=== PATIENT | female | born 1975 | race Caucasian/White ===

== ENCOUNTER → 2016-12-15 | Outpatient (CLI) | payer BC ==
--- NOTE | 2016-12-19 09:18 | MM ---
Reason for exam: screening (asymptomatic). Last mammogram was performed 1 year and 11 months ago. History: Patient is postmenopausal and has history of ovarian cancer at age 39. Family history of breast cancer in maternal aunt at age 60 and breast cancer in paternal aunt at age 50. Took hormonal contraceptives for 3 years. Physical Findings: A clinical breast exam by your physician is recommended on an annual basis and results should be correlated with mammographic findings. MG 3D Screening Mammo W/Cad Bilateral CC and MLO view(s) were taken. Prior study comparison: February 03, 2015, bilateral US breast workup limited TERRIE. January 16, 2015, bilateral MG 3d screening mammo w/cad. November 05, 2010, bilateral digital screening mammo w/CAD. The breast tissue is almost entirely fat. Tiny 2mm nodular asymmetry only seen on the CC view left breast seems to persist on the 3D images. No correlation on the MLO images. 6 month follow up recommended. ASSESSMENT: Probably benign, BI-RAD 3 RECOMMENDATION: Follow-up diagnostic mammogram of the left breast in 6 months.
== END | disposition home or self-care (01) ==
LOC: RADMAMWWP 13:31
PROVIDERS: ATTEND Internal Medicine Hematology & Oncology
DX: Z12.31 Encounter for screening mammogram for malignant neoplasm of breast (principal)
CPT/HCPCS: 77063; G0202

== ENCOUNTER → 2017-11-28 | Outpatient (CLI) | payer BC ==
--- NOTE | 2017-11-28 13:51 | US ---
EXAMINATION TYPE: US abdomen comp/pelvis limited DATE OF EXAM: 11/28/2017 COMPARISON: Prior ultrasound 09/09/2014, CT 201509/16/2014 CLINICAL HISTORY: R31.9 Hematuria. EXAM MEASUREMENTS: Liver Length: 17.1 cm Gallbladder Wall: 0.3 cm CBD: 0.5 cm Spleen: 9.3 cm Right Kidney: 11.5 x 3.9 x 5.3 cm Left Kidney: 11.5 x 5.6 x 5.2 cm Pancreas: wnl Liver: left lobe mass seen previously by ultrasound not visualized in today's ultrasound, right lobe mass measures 7.3 x 6.2 x 5.0cm., Similar to most recent CT, prior ultrasound. Liver shows a coarse echotexture possibly hepatocellular disease. Gallbladder: there are two non mobile echogenic foci believed to be polyps measuring 0.4 and 0.3cm CBD: wnl Spleen: wnl Right Kidney: No hydronephrosis or masses seen Left Kidney: No hydronephrosis or masses seen and cortical medullary differentiation is maintained b ilaterally. Upper IVC: wnl Abd Aorta: wnl Bladder: not fully distended There is no ascites. IMPRESSION: Right lobe liver mass shows a similar appearance. Additional liver lesion is not seen. Ga llbladder polyps. Exam is somewhat limited, bladder not distended.
== END | disposition home or self-care (01) ==
LOC: RADUSWWP 06:56
PROVIDERS: ATTEND Internal Medicine
DX: K82.4 Cholesterolosis of gallbladder (principal); K76.89 Other specified diseases of liver
CPT/HCPCS: 76700; 76857

== ENCOUNTER → 2017-12-18 | Outpatient (CLI) | payer BC ==
--- NOTE | 2017-12-18 09:06 | MM ---
Reason for exam: follow-up at short interval from prior study. Last mammogram was performed 6 months ago. History: Patient is postmenopausal and has history of ovarian cancer at age 39. Family history of breast cancer in maternal aunt at age 60 and breast cancer in paternal aunt at age 50. Took hormonal contraceptives for 3 years. Physical Findings: Nurse did not find any significant physical abnormalities on exam. MG 3D Diag Mammo W/Cad TERRIE Bilateral CC and MLO view(s) were taken. Prior study comparison: June 16, 2017, left breast MG 3d diag mammo w/cad LT. December 15, 2016, bilateral MG 3d screening mammo w/cad. There are scattered fibroglandular densities. There is chronic nodularity in the left breast. No significant new findings when compared with previous films. These results were verbally communicated with the patient and result sheet given to the patient on 12/18/17. ASSESSMENT: Negative, BI-RAD 1 RECOMMENDATION: Routine screening mammogram of both breasts in 1 year.
== END | disposition home or self-care (01) ==
LOC: RADMAMWWP 07:59
PROVIDERS: ATTEND Internal Medicine Hematology & Oncology
DX: R92.8 Other abnormal and inconclusive findings on diagnostic imaging of breast (principal)
CPT/HCPCS: 77062; 77066

== ENCOUNTER → 2019-03-22 | Outpatient (CLI) | payer BC ==
--- NOTE | 2019-03-22 12:35 | XR ---
EXAMINATION TYPE: XR Hip Complete RT DATE OF EXAM: 03/22/2019 COMPARISON: None HISTORY: Patient pain increasing TECHNIQUE: 2 view right hip FINDINGS: Femoral head articulates with the acetabulum. No acute fracture or dislocation is evident. Joint spaces preserved. IMPRESSION: 1. Normal 2 view right hip
== END | disposition home or self-care (01) ==
LOC: RADXRYALE 10:35
PROVIDERS: ATTEND Internal Medicine
DX: M25.551 Pain in right hip (principal)
CPT/HCPCS: 73502

== ENCOUNTER → 2019-12-10 | Outpatient (CLI) | payer BC ==
--- NOTE | 2019-12-11 11:58 | MM ---
Reason for exam: screening (asymptomatic). Last mammogram was performed 2 years ago. History: Patient is postmenopausal and has history of ovarian cancer at age 39. Family history of breast cancer in maternal aunt at age 60 and breast cancer in paternal aunt at age 50. Took hormonal contraceptives for 3 years. Physical Findings: A clinical breast exam by your physician is recommended on an annual basis and results should be correlated with mammographic findings. MG 3D Screening Mammo W/Cad Bilateral CC and MLO view(s) were taken. Prior study comparison: December 18, 2017, bilateral MG 3d diag mammo w/cad [facility]E. June 16, 2017, left breast MG 3d diag mammo w/cad LT. The breast tissue is almost entirely fat. No significant changes when compared with prior studies. ASSESSMENT: Benign, BI-RAD 2 RECOMMENDATION: Routine screening mammogram of both breasts in 1 year.
== END | disposition home or self-care (01) ==
LOC: RADMAMWWP 14:46
PROVIDERS: ATTEND Internal Medicine Hematology & Oncology
DX: Z12.31 Encounter for screening mammogram for malignant neoplasm of breast (principal); Z80.3 Family history of malignant neoplasm of breast
CPT/HCPCS: 77063; 77067

== ENCOUNTER → 2020-08-12 | Outpatient (CLI) | payer BC ==
--- NOTE | 2020-08-12 21:49 | CT ---
EXAMINATION TYPE: CT ChestAbdPelvis w con DATE OF EXAM: 08/12/2020 INDICATION: Ovarian cancer follow up. Observe for mets. COMPARISON: 11/16/2015 CT DLP: 1998.3 mGycm CONTRAST: Performed without Oral Contrast and with IV Contrast, patient injected with 100 mL of Isovue M300. TECHNIQUE: Axial images at 5 mm thick sections. Reconstructed images in the coronal plane. Delayed images through the kidneys. FINDINGS: CT CHEST: Portion of the thyroid visualized is normal. There are faint scattered filtrates throughout the bilateral lung lorenz. These are nonspecific. Infe ctious etiology could be considered. Metastatic disease is not excluded. Follow-up is recommended. No enlarged mediastinal or hilar adenopathy is evident. There are scattered small lymph nodes within the mediastinum The ascending aorta diameter at the level of the main pulmonary artery is 3.5 cm. The main pulmonary artery diameter at the bifurcation is 3.[address] ABDOMEN: Liver: There is a 6.4 cm irregular hypodensity within the liver. This appears to mostly fill on postc ontrast imaging. This was present previously. Interval increase in size is not evident. Findings can be suggestive for a hemangioma Spleen: Splenic splenules are present. Spleen appears unremarkable. Pancreas: Normal Adrenal glands: The adrenal glands are normal. Gallbladder: Normal Kidneys: No masses are evident. No hydronephrosis is present. No cysts are present. Delayed images were obtained through the kidneys, which remain unremarkable. Aorta: Normal Inferior vena cava: Normal. CT PELVIS: Loops of bowel within the abdomen and pelvis are normal. Study is performed without oral contrast limiting pelvic evaluation Appendix: Normal as visualized. Urinary bladder: Normal. Genitourinary structures: Uterus and ovaries are not identified. No omental caking is evident. No amanda picious ascites is evident Osseous structures: No suspicious lytic or sclerotic lesions. IMPRESSIONS: 1. Scattered infiltrates in the lungs. Infectious etiology and metastatic disease should be considere d. Short-term follow-up of the chest is recommended stable lesion within the right lobe liver suggest jimmy for old not completely diagnostic of, a hemangioma.
== END | disposition home or self-care (01) ==
LOC: RADPROMAIN 14:23
PROVIDERS: ATTEND Internal Medicine Hematology & Oncology
DX: C56.9 Malignant neoplasm of unspecified ovary (principal); R91.8 Other nonspecific abnormal finding of lung field
CPT/HCPCS: 71260; 74177; J1642; Q9967

== ENCOUNTER → 2021-03-02 | Outpatient (CLI) | payer BC ==
--- NOTE | 2021-03-04 14:47 | MM ---
Reason for exam: screening (asymptomatic). Last mammogram was performed 1 year and 3 months ago. History: Patient is postmenopausal and has history of ovarian cancer at age 39. Family history of breast cancer in maternal aunt at age 60 and breast cancer in paternal aunt at age 50. Took hormonal contraceptives for 3 years. Physical Findings: A clinical breast exam by your physician is recommended on an annual basis and results should be correlated with mammographic findings. MG 3D Screening Mammo W/Cad Bilateral CC and MLO view(s) were taken. Prior study comparison: December 10, 2019, bilateral MG 3d screening mammo w/cad. December 18, 2017, bilateral MG 3d diag mammo w/cad [facility]E. There are scattered fibroglandular densities. No significant changes when compared with prior studies. ASSESSMENT: Benign, BI-RAD 2 RECOMMENDATION: Routine screening mammogram of both breasts in 1 year.
== END | disposition home or self-care (01) ==
LOC: RADMAMWWP 11:25
PROVIDERS: ATTEND Internal Medicine Hematology & Oncology
DX: Z12.31 Encounter for screening mammogram for malignant neoplasm of breast (principal); Z80.3 Family history of malignant neoplasm of breast; Z78.0 Asymptomatic menopausal state; Z85.43 Personal history of malignant neoplasm of ovary
CPT/HCPCS: 77063; 77067

== ENCOUNTER → 2022-04-06 | Outpatient (CLI) | payer BC ==
--- NOTE | 2022-04-06 14:41 | XR ---
EXAMINATION TYPE: XR Hip Complete RT DATE OF EXAM: 04/06/2022 COMPARISON: NONE HISTORY: Pain TECHNIQUE: 2 views submitted FINDINGS: There is no evidence of erosive change or acute fracture. Joint space preserved. Surgical clips in the pelvis. Calcification in the pelvis likely vascular. Vis ualized SI joints normal. There is mild hypertrophy of the acetabulum laterally. IMPRESSION: 1. Joint space is preserved. Mild degree of femoral acetabular impingement in the differential diagno sis consider follow-up MRI.
--- NOTE | 2022-04-06 14:42 | XR ---
EXAM TYPE: LUMBAR SPINE X RAY SERIES COMPARISON: NONE HISTORY: Pain TECHNIQUE: 4 views are submitted. FINDINGS: Alignment is anatomic. The pedicles are intact. The transverse processes are intact. There is face t arthropathy involving the lower lumbar spine with moderate degenerative disc disease L4-5. No defin ite spondylolysis or spondylolisthesis. Mild degenerative disc disease at remaining levels. IMPRESSION: 1. Mild to moderate degenerative disc disease most marked at L4-L5 with facet arthropathy. Suspect fo raminal encroachment L4-5 and L5-S1. Recommend MRI.
== END | disposition home or self-care (01) ==
LOC: RADXRYALE 13:37
PROVIDERS: ATTEND Internal Medicine
DX: M51.36 Other intervertebral disc degeneration, lumbar region (principal); M24.851 Other specific joint derangements of right hip, not elsewhere classified; M54.31 Sciatica, right side
CPT/HCPCS: 72110; 73502

== ENCOUNTER → 2022-06-10 | Outpatient (CLI) | payer BC ==
--- NOTE | 2022-06-10 10:01 | MR ---
EXAMINATION TYPE: MR abdomen wo/w con DATE OF EXAM: 06/10/2022 COMPARISON: CT April 25, 2022 HISTORY: Abnormal CT. Fatty change of liver. History of ovarian cancer. CONTRAST: Standard multiplanar, multisequence MRI departmental protocol images were obtained without contrast a nd with 11 mL intravenous Gadavist gadolinium contrast. Imaging performed of the abdomen focusing on the liver. FINDINGS: Liver: Liver remains normal in size. Diffuse signal dropout is present correlates with marked fatty i nfiltration as suspected on CT. Wedge-shaped area of slightly less prominent fatty infiltration in th e anterolateral right lobe correlates with CT area of focal fatty sparing. In the posterior right hep atic lobe there is mass of T1 hypointensity and T2 slight hyperintensity measuring 5.8 x 4.8 cm that shows peripheral nodular enhancement and progressive centripetal filling on dynamic images consistent with giant hemangioma. There is a new 1.0 cm homogeneous enhancing lesion in the hepatic dome that s hows some washout on delayed images felt to reflect flash filling hemangioma image 581 series 901. Si milar lesions in the right hepatic lobe image 41 series 901 and a few similar lesions in the left hep atic lobe are identified. No ductal dilatation. Gallbladder is within normal limits. No ascites. Port al vein is patent and not dilated. There are hepatic veins draining into the IVC. Other: Lung bases are grossly clear. Incidental tiny splenule. Pancreas and both adrenal glands appea r within normal limits. No renal mass or hydronephrosis. No suspicious bowel dilatation. No intra-abd ominal ascites. Osseous structures are intact IMPRESSION: Marked diffuse fatty infiltration of liver redemonstrated. Giant hemangioma and smaller f lash filling hemangiomas noted. No biliary dilatation. No suspicious enhancement to suggest metastati c disease.
== END | disposition home or self-care (01) ==
LOC: RADMRIMAIN 08:19
PROVIDERS: ATTEND Internal Medicine Hematology & Oncology
DX: C56.2 Malignant neoplasm of left ovary (principal); K76.0 Fatty (change of) liver, not elsewhere classified
CPT/HCPCS: 74183; J1642; A9585

== ENCOUNTER 2022-11-05 00:12 | Emergency (ER) | payer BC ==
[2022-11-05 00:27] VITALS: TEMP 98.2
--- NOTE | 2022-11-05 00:29 | ED ---
Fall HPI - General Chief Complaint: Fall Stated Complaint: FALL Time Seen by Provider: 11/05/22 00:17 Source: patient, EMS, RN notes reviewed, old records reviewed Mode of arrival: EMS Limitations: no limitations - History of Present Illness Initial Comments: This is a 47-year-old female to the emergency department today for evaluation presents today after fall. Patient of fall off a chair that broke a she was sitting on today. Patient is complaining of back pain and did hit her head. No loss of consciousness no blood thinners. 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 Fall Witnessed: yes, by bystander Place Fall Occurred: other (The abdominal) Loss of Consciousness: none Prolonged Down Time?: no Symptoms Prior to Fall: none Location: head Severity: moderate Severity scale (1-10): 4 Quality: burning Context: tripped/slipped Associated Symptoms: denies - Related Data Previous Rx's Medication Instructions Recorded Acetaminophen-Codeine 300-30mg 2 tab PO Q6H PRN #30 tablet 10/10/14 [Tylenol #3] Allergies Allergy/AdvReac Type Severity Reaction Status Date / Time latex Allergy Rash/Hives Verified 10/07/14 08:54 Review of Systems ROS Statement: Those systems with pertinent positive or pertinent negative responses have been documented in the HPI. ROS Other: All systems not noted in ROS Statement are negative. Past Medical History Past Medical History: Cancer Additional Past Medical History / Comment(s): ovarian Ca, chemo completed, in remission History of Any Multi-Drug Resistant Organisms: None Reported Past Surgical History: Section, Hysterectomy Past Anesthesia/Blood Transfusion Reactions: Motion Sickness Past Psychological History: No Psychological Hx Reported Smoking Status: Never smoker Past Alcohol Use History: None Reported Past Drug Use History: None Reported - Past Family History Father Family Medical History: No Reported History Mother Family Medical History: No Reported History General Exam Limitations: altered mental status General appearance: alert, in no apparent distress Head exam: Present: atraumatic, normocephalic, normal inspection Eye exam: Present: normal appearance, PERRL, EOMI. Absent: scleral icterus, conjunctival injection, periorbital swelling ENT exam: Present: normal exam, mucous membranes moist Neck exam: Present: normal inspection. Absent: tenderness, meningismus, lymphadenopathy Respiratory exam: Present: normal lung sounds bilaterally. Absent: respiratory distress, wheezes, rales, rhonchi, stridor Cardiovascular Exam: Present: regular rate, normal rhythm, normal heart sounds. Absent: systolic murmur, diastolic murmur, rubs, gallop, clicks GI/Abdominal exam: Present: soft, normal bowel sounds. Absent: distended, tenderness, guarding, rebound, rigid Extremities exam: Present: normal inspection, full ROM, normal capillary refill. Absent: tenderness, pedal edema, joint swelling, calf tenderness Back exam: Present: normal inspection Neurological exam: Present: alert, oriented X3, CN II-XII intact Psychiatric exam: Present: normal affect, normal mood Skin exam: Present: warm, dry, intact, normal color. Absent: rash Course Vital Signs 11/05/22 11/05/22 00:17 05:11 Temperature 98.2 F Pulse Rate 98 66 Respiratory 12 18 Rate Blood Pressure 131/85 114/67 O2 Sat by Pulse 96 98 Oximetry - Reevaluation(s) Reevaluation #1: 11/05/22 02:10 Medical record is reviewed Reevaluation #2: 11/05/22 02:10 Patient is not requiring any pain medication Reevaluation #3: 11/05/22 02:10 Patient informed results questions answered Reevaluation #4: 11/05/22 02:10 Was pt. sent in by a medical professional or institution (, PA, DISTRICT SUPERVISOR, urgent care, hospital, or usp...) When possible be specific @ -no Did you speak to anyone other than the patient for history (EMS, parent, family, police, friend...)? What history was obtained from this source @ -no Did you review nursing and triage notes (agree or disagree)? Why? @ -agree Are old charts reviewed (outside hosp., previous admission, EMS record, old EKG, old radiological studies, urgent care reports/EKG's, usp records)? Report findings @ -yes Differential Diagnosis (chest pain, altered mental status, abdominal pain women, abdominal pain men, vaginal bleeding, weakness, fever, dyspnea, syncope, headache, dizziness, GI bleed, back pain, seizure, CVA, palpatations, mental health, musculoskeletal)? @ -prior EKG interpreted by me (3pts min.). @ -no X-rays interpreted by me (1pt min.). @ -yes CT interpreted by me (1pt min.). @ -yes U/S interpreted by me (1pt. min.). @ -no What testing was considered but not performed or refused? (CT, X-rays, U/S, labs)? Why? @ -none What meds were considered but not given or refused? Why? @ -none Did you discuss the management of the patient with other professionals (professionals i.e. , PA, DISTRICT SUPERVISOR, lab, RT, psych nurse, executive secretary social welfare, military lawyer, teacher, nuclear officer, casework supervisor)? Give summary @ -no Was smoking cessation discussed for >3mins.? @ -no Was critical care preformed (if so, how long)? @ -no Were there social determinants of health that impacted care today? How? (Homelessness, low income, unemployed, alcoholism, drug addiction, transportation, low edu. Level, literacy, decrease access to med. care, group home, rehab)? @ -none Was there de-escalation of care discussed even if they declined (Discuss DNR or withdrawal of care, Hospice)? DNR status @ -no What co-morbidities impacted this encounter? (DM, HTN, Smoking, COPD, CAD, Cancer, CVA, ARF, Chemo, Hep., AIDS, mental health diagnosis, sleep apnea, morbid obesity)? @ -none Was patient admitted / discharged? Hospital course, mention meds given and route, prescriptions, significant lab abnormalities, going to OR and other pertinent info. @ - 47 female after fall fall off chair, patient did hit her head with no significant obvious head injury the patient was very emotional and mildly altered on arrival. The symptoms are resolved and patient can be discharged home Discharge Undiagnosed new problem with uncertain prognosis? @ -no Drug Therapy requiring intensive monitoring for toxicity (Heparin, Nitro, Insulin, Cardizem)? @ -no Were any procedures done? @ -no Diagnosis/symptom? @ -Fall, head injury Acute, or Chronic, or Acute on Chronic? @ -Acute Uncomplicated (without systemic symptoms) or Complicated (systemic symptoms)? @ -Complicated Side effects of treatment? @ -no Exacerbation, Progression, or Severe Exacerbation? @ -exacerbation Poses a threat to life or bodily function? How? (Chest pain, USA, CA, pneumonia, PE, COPD, DKA, ARF, appy, cholecystitis, CVA, Diverticulitis, Homicidal, Suicidal, threat to staff... and all critical care pts) @ -no Medical Decision Making - Medical Decision Making 47 female after fall fall off chair, patient did hit her head with no significant obvious head injury the patient was very emotional and mildly altered on arrival. The symptoms are resolved and patient can be discharged home - Radiology Data Radiology results: report reviewed (CT brain C-spine chest and pelvis x-ray are negative for traumatic injury), image reviewed Disposition Clinical Impression: Fall, Contusion of head, Back pain, Buttock pain Disposition: HOME SELF-CARE Condition: Good Instructions (If sedation given, give patient instructions): Fall Prevention (ED) Is patient prescribed a controlled substance at d/c from ED?: No Referrals: Yue Mejia MD [Primary Care Provider] - 1-2 days Time of Disposition: 03:00
--- NOTE | 2022-11-05 02:38 | CT ---
EXAM: CT Head Without Intravenous Contrast CLINICAL HISTORY: ITS.REASON CT Reason: fall TECHNIQUE: Axial computed tomography images of the head/brain without intravenous contrast. CTDI is 45.2 mGy and DLP is 1022 mGy-cm. This CT exam was performed using one or more of the following dose reduction techniques: automated exposure control, adjustment of the mA and/or kV according to patient size, and/or use of iterative reconstruction technique. COMPARISON: No relevant prior studies available. FINDINGS: Brain: No hemorrhage or mass effect. Ventricles: No hydrocephalus. Bones/joints: Unremarkable. Soft tissues: Unremarkable. Sinuses: No air fluid level. Mastoid air cells: Clear. IMPRESSION: No acute hemorrhage, hydrocephalus, or mass effect. EXAM: CT Cervical Spine Without Intravenous Contrast CLINICAL HISTORY: ITS.REASON CT Reason: fall TECHNIQUE: Axial computed tomography images of the cervical spine without intravenous contrast. CTDI is 27.3 mGy and DLP is 680.1 mGy-cm. This CT exam was performed using one or more of the following dose reduction techniques: automated exposure control, adjustment of the mA and/or kV according to patient size, and/or use of iterative reconstruction technique. COMPARISON: No relevant prior studies available. FINDINGS: Vertebrae: No acute fracture. Discs/spinal canal/neural foramina: degenerative changes. Soft tissues: No prevertebral swelling. IMPRESSION: No acute fracture or subluxation.
--- NOTE | 2022-11-05 03:37 | XR ---
EXAM: XR Pelvis, 1 or 2 Views CLINICAL HISTORY: ITS.REASON XR Reason: fall TECHNIQUE: Frontal view of the pelvis. COMPARISON: No relevant prior studies available. FINDINGS: Bones/joints: No acute fracture. No dislocation. Soft tissues: Unremarkable. IMPRESSION: No acute findings.
--- NOTE | 2022-11-05 03:37 | XR ---
EXAM: XR Chest, 1 View CLINICAL HISTORY: ITS.REASON XR Reason: fall TECHNIQUE: Frontal view of the chest. COMPARISON: No relevant prior studies available. FINDINGS: Lungs: No consolidation or mass. Pleural space: No acute findings Heart: Mild cardiomegaly. Bones/joints: No acute findings. IMPRESSION: No acute cardiopulmonary process.
[2022-11-05 05:14] VITALS: BP 114/67; PULSE 66; RESP 18
== END 2022-11-05 05:46 | disposition home or self-care (01) ==
LOC: EC 00:12
DX: S00.93XA Contusion of unspecified part of head, initial encounter (principal); Z91.040 Latex allergy status; W07.XXXA Fall from chair, initial encounter
CPT/HCPCS: 70450; 71045; 72125; 72170; 99284

== ENCOUNTER 2023-01-13 13:27 | Day surgery (SDC) | payer BC ==
[2023-01-13 14:04] VITALS: TEMP 97.7
[2023-01-13] MEDS ORDERED: LACTATED RINGERS 1,000 ML IV ONE (14:05)
[2023-01-13] MEDS ORDERED: PROPOFOL 10 MG/ML 20 ML VIAL IV ONE (14:49)
--- NOTE | 2023-01-13 15:05 | P.PCN ---
Date of Procedure: 01/13/23 Procedure(s) Performed: BRIEF HISTORY: Patient is a 47-year-old pleasant 8 female scheduled for an elective colonoscopy as a part of evaluation of intermittent rectal bleeding for the last 6 months duration PROCEDURE PERFORMED: Colonoscopy. PREOPERATIVE DIAGNOSIS: Intermittent rectal bleeding. IV sedation per Anesthesia. PROCEDURE: After informed consent was obtained, the patient, was brought into the endoscopy unit. IV sedation was administered by Anesthesia under continuous monitoring. Digital rectal examination was normal. Initially the Olympus CF-160 flexible video colonoscope was then inserted in the rectum, gradually advanced into the cecum without any difficulty. Careful examination was performed as the scope was gradually being withdrawn. Ileocecal valve and the appendiceal orifice were visualized and appeared normal. Prep was excellent. Mucosa of the cecum, ascending colon, transverse colon, descending colon, sigmoid colon, and rectum appeared normal. Retroflexion was performed in the rectum and small internal hemorrhoids were seen. The patient tolerated the procedure well. IMPRESSION: Normal-appearing colon from rectum to cecum with no evidence of colorectal neoplasia . Small internal hemorrhoids. RECOMMENDATIONS: Findings of this examination were discussed with the patient as well as a family. She was advised to be a high-fiber diet and take fiber supplements a regular basis. Recommend repeat screening colonoscopy in 10 years..
[2023-01-13 15:38] VITALS: BP 123/69; PULSE 72; RESP 16
== END 2023-01-13 15:49 | disposition home or self-care (01) ==
LOC: ORWHC2ENDO 13:27
PROVIDERS: ATTEND Internal Medicine Gastroenterology
DX: K62.5 Hemorrhage of anus and rectum (principal); K64.8 Other hemorrhoids; Z91.040 Latex allergy status; Z98.890 Other specified postprocedural states; Z79.899 Other long term (current) drug therapy
CPT/HCPCS: 45378; J2704

== ENCOUNTER → 2023-03-02 | Outpatient (CLI) | payer BC ==
--- NOTE | 2023-03-02 12:44 | CT ---
EXAMINATION TYPE: CT ChestAbdPelvis w con DATE OF EXAM: 03/02/2023 COMPARISON: Noncontrast CT of the chest abdomen pelvis dated 04/25/[address] chest abdomen pelv is dated 08/12/2020 HISTORY: ovarian CA CT DLP: 2299 mGycm Automated exposure control for dose reduction was used. CONTRAST: CT scan of the chest, abdomen and pelvis is performed without Oral Contrast and with IV Contrast, pat ient injected with 100 mL of Isovue 300. FINDINGS: CT chest: There is no suspicious lung mass or nodule. There is no airspace/consolidative density or abnormal interstitial density. There is no pleural effusion, pleural thickening or pneumothorax. The great vessels the chest are normal is no mediastinal, hilar or axillary adenopathy. No osseous le sions are seen. CT abdomen and pelvis: There is a 6.5 cm peripherally enhancing mass in the posterior segment right lobe of liver which was seen previously appears to be stable and most likely represents an hemangioma. There are 5 additional enhancing lesions, 3 in the lateral segment left lobe of liver and 2 in the anterior segment right lobe of liver ranging in size from 10 mm to 13 mm. These were not clearly present on the prior contra st CT dated 08/12/2020 and therefore hypervascular metastasis cannot be excluded. MRI of the liver woul d be useful for further evaluation. There is no focal mass or organomegaly involving the pancreas, spleen or adrenal glands. There is no solid renal mass or hydronephrosis. There is no retroperitoneal adenopathy or hemorrhage in the caliber of the abdominal aorta is normal. The bowel loops are normal in caliber and there is no dilatation or obstruction. No inflammatory amin ges are identified in the bowel wall or mesentery. There is no free intraperitoneal air or fluid. There are surgical absence of the uterus and adnexa. There is no pelvic mass, free fluid, abscess or adenopathy. No focal osseous abnormalities are seen. IMPRESSION: 1. Stable chest with no evidence of metastatic disease. 2. Multiple enhancing lesions within the liver that were not clearly seen on prior studies and theref ore metastatic disease with hypervascular metastases cannot be excluded. MRI of the liver is recommen ded for further evaluation.
== END | disposition home or self-care (01) ==
LOC: RADPROMAIN 09:53
PROVIDERS: ATTEND Internal Medicine Hematology & Oncology
DX: C56.2 Malignant neoplasm of left ovary (principal); K76.9 Liver disease, unspecified
CPT/HCPCS: 71260; 74177; J1642; Q9967

== ENCOUNTER → 2023-03-22 | Outpatient (CLI) | payer BC ==
--- NOTE | 2023-03-24 13:32 | MR ---
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 TECHNIQUE: Multiplanar multi-sequence imaging was performed without contrast. Post contrast imaging was performed. Post IV contrast subtraction images were also submitted for review. IV Contrast: 11 cc Gadavist FINDINGS: LOWER CHEST: No gross irregularity. ABDOMEN Liver: No evidence for cirrhosis. There is signal dropout on chemical shift imaging compatible with hepatic steatosis. Few scattered small high T2 signal lesions are present including the left hepatic lobe anteriorly whi ch measures 12 mm with postcontrast enhancement which persists on delayed imaging. Other lesions in the right hepatic dome and inferiorly demonstrate arterial phase enhancement which b ecome isointense on delayed imaging. The dominant lesion measures 56 x 46 mm and has peripheral nodul ar enhancement which persists and progresses on delayed imaging. Gallbladder and Bile ducts: No evidence for ductal dilation, or biliary stricture or evidence of chol edocholithiasis. The gallbladder is within normal limits. Pancreas: No ductal dilation. No evidence for solid mass. Spleen: Normal for size. Adrenal glands: Unremarkable. Kidneys: No evidence for obstructive uropathy. No suspicious renal masses. Subcentimeter probable chester al cysts. Stomach and Bowel: No evidence for bowel wall thickening or evidence for obstruction.. Peritoneum: No evidence of pneumoperitoneum or free fluid. Vasculature: No aortic aneurysm. Musculoskeletal: The osseous structures appear intact. Lymph Nodes: No gross evidence for lymphadenopathy. Abdominal wall: Unremarkable. IMPRESSION: Scattered hepatic lesions some of which have been present since 2013 including the large dominant les ion. Other smaller lesions are more conspicuous on prior CT imaging due to phase of contrast. The lar ge dominant lesion favors hemangioma. Other smaller areas may represent flash filling hemangiomas ruthie amanda vascular shunt phenomenon. Continued surveillance recommended. No lymphadenopathy within the abdomen.
== END | disposition home or self-care (01) ==
LOC: RADMRIMAIN 14:18
PROVIDERS: ATTEND Internal Medicine Hematology & Oncology
DX: C56.2 Malignant neoplasm of left ovary (principal); K76.89 Other specified diseases of liver
CPT/HCPCS: 74183; A9585

== ENCOUNTER → 2023-04-17 | Outpatient (CLI) | payer BC ==
--- NOTE | 2023-04-18 13:02 | MM ---
Reason for Exam: Screening (asymptomatic). Last screening mammogram was performed 12 month(s) ago. Patient History: Menarche at age 10. First Full-Term at age 28. Late child-bearing (after 28). Left ovary removed at age 39. Right ovary removed at age 39. Hysterectomy at age 39. Postmenopausal. Ovarian cancer, age 39. Previous chemotherapy at age 39. Patient used Hormonal Contraceptives for 3 years. Paternal aunt had breast cancer, age 50. Maternal aunt had breast cancer, age 60. Risk Values: Deanna 5 year model risk: 1.3%. NCI Lifetime model risk: 12.3%. Prior Study Comparison: 12/10/2019 Bilateral Screening Mammogram, [facility]. 03/02/2021 Bilateral Screening Mammogram, [facility]. 04/11/2022 Bilateral MG 3D screening mammo w/cad, [facility]. Tissue Density: The breast tissue is almost entirely fat. Findings: Analyzed By CAD. There is no suspicious group of microcalcifications or new suspicious mass. Overall Assessment: Negative, BI-RAD 1 Management: Screening Mammogram of both breasts in [address] [facility] will attempt to contact patient to return for supplemental views and ultrasound if indicated. Patient should continue monthly self-breast exams. A clinical breast exam by your physician is recommended on an annual basis. This exam should not preclude additional follow-up of suspicious palpable abnormalities. Note on Deanna scores and lifetime risk: 1. A Deanna score greater than 3% is considered moderate risk. If this is the case, consider specialist referral to assess eligibility for a risk reducing agent. 2. If overall lifetime risk for the development of breast cancer is 20% or higher, the patient may qualify for future screening with alternating mammogram and breast MRI. Electronically signed and approved by: Emmett Madrigal DO
== END | disposition home or self-care (01) ==
LOC: RADMAMWWP 14:11
PROVIDERS: ATTEND Internal Medicine
DX: Z12.31 Encounter for screening mammogram for malignant neoplasm of breast (principal); Z78.0 Asymptomatic menopausal state; Z80.3 Family history of malignant neoplasm of breast
CPT/HCPCS: 77063; 77067

== ENCOUNTER 2023-12-20 09:09 | Emergency (ER) | payer BC ==
[2023-12-20] MEDS: SODIUM CHLORIDE 0.9% 1,000 ML IV STA (09:49)
[2023-12-20] MEDS: ONDANSETRON 4 MG/2 ML VIAL IVP STA (09:50)
[2023-12-20] MEDS: HYDROmorphone 0.5 MG/0.5 ML SYRINGE IVP STA (09:52)
[2023-12-20 10:00] LABS: Appearance,Urine Clear (Clear); Basophils % (A) 0 %; Bilirubin,Urine Negative (Negative); Blood,Urine Negative (Negative); Color,Urine Colorless; Eosinophils # (A) 0.2 k/uL (0-0.7); Eosinophils % (A) 2 %; Glucose,Urine (UA) Negative (Negative); HCT 46.1 % (34.0-46.0); Ketones,Urine Negative (Negative); Leukocyte Esterase,Urine Negative (Negative); Lymphocytes # (A) 2.3 k/uL (1.0-4.8); Lymphocytes % (A) 23 %; MCH 29.2 pg (25.0-35.0); MCHC 32.7 g/dL (31.0-37.0); MCV 89.5 fL (80.0-100.0); Mean Platelet Volume 7.3; Monocytes # (A) 0.6 k/uL (0-1.0); Monocytes % (A) 6 %; Neutrophils # (A) 6.5 k/uL (1.3-7.7); Neutrophils % (A) 65 %; Nitrite,Urine Negative (Negative); Platelet Count 365 k/uL (150-450); Protein,Urine Negative (Negative); RBC 5.15 m/uL (3.80-5.40); RDW 13.4 % (11.5-15.5); Specific Gravity,Urine 1.018 (1.001-1.035); Urobilinogen,Urine <2.0 mg/dL (<2.0)
--- NOTE | 2023-12-20 10:10 | ED ---
Abdominal Pain HPI - General Chief Complaint: Abdominal Pain Stated Complaint: Rt side flank pain Time Seen by Provider: 12/20/23 09:14 Source: patient, RN notes reviewed Mode of arrival: ambulatory Limitations: no limitations - History of Present Illness Initial Comments: 48-year-old female presents emergency department complaint of right abdominal pain. Patient states it was sudden onset and has not alleviated. Nothing makes it feel better or worse. Patient states its underneath her right rib she denies any significant flank or back pain at this time. She denies any nausea vomiting she states that she did eat a muffin late at night. Patient denies any dysuria she denies any reports of fever chest pain shortness of breath - Related Data Home Medications Medication Instructions Recorded Confirmed Vitamin B (Unknown) 1 tab PO DAILY 12/20/23 12/20/23 Vitamin D (Unknown) 1 tab PO DAILY 12/20/23 12/20/23 Previous Rx's Medication Instructions Recorded Cyclobenzaprine [Flexeril] 10 mg PO TID PRN #15 tab 12/20/23 Allergies Allergy/AdvReac Type Severity Reaction Status Date / Time latex Allergy Rash/Hives Verified 12/20/23 09:57 Review of Systems ROS Statement: Those systems with pertinent positive or pertinent negative responses have been documented in the HPI. ROS Other: All systems not noted in ROS Statement are negative. Past Medical History Past Medical History: No Reported History, Cancer Additional Past Medical History / Comment(s): Ovarian cancer in 2014 History of Any Multi-Drug Resistant Organisms: None Reported Past Surgical History: Section, Hysterectomy Past Anesthesia/Blood Transfusion Reactions: Motion Sickness Past Psychological History: No Psychological Hx Reported Smoking Status: Never smoker Past Alcohol Use History: Rare Past Drug Use History: None Reported - Past Family History Father Family Medical History: No Reported History Mother Family Medical History: No Reported History General Exam Limitations: no limitations General appearance: alert, in no apparent distress Head exam: Present: atraumatic, normocephalic, normal inspection Eye exam: Present: normal appearance, PERRL, EOMI. Absent: scleral icterus, conjunctival injection, periorbital swelling ENT exam: Present: normal exam, normal oropharynx, mucous membranes moist Neck exam: Present: normal inspection, full ROM. Absent: tenderness, meningismus, lymphadenopathy Respiratory exam: Present: normal lung sounds bilaterally. Absent: respiratory distress, wheezes, rales, rhonchi, stridor Cardiovascular Exam: Present: regular rate, normal rhythm, normal heart sounds. Absent: systolic murmur, diastolic murmur, rubs, gallop, clicks GI/Abdominal exam: Present: soft, tenderness (Right upper quadrant), normal bowel sounds. Absent: distended, guarding, rebound, rigid Back exam: Absent: CVA tenderness (R), CVA tenderness (L) Course Vital Signs 12/20/23 09:15 Temperature 97.5 F L Pulse Rate 77 Respiratory 20 Rate Blood Pressure 121/59 O2 Sat by Pulse 98 Oximetry Medical Decision Making - Medical Decision Making Was pt. sent in by a medical professional or institution (, PA, WOOL HAT FINISHER, urgent care, hospital, or care home...) When possible be specific @ -No Did you speak to anyone other than the patient for history (EMS, parent, family, police, friend...)? What history was obtained from this source @ -No Did you review nursing and triage notes (agree or disagree)? Why? @ -I reviewed and agree with nursing and triage notes Were old charts reviewed (outside hosp., previous admission, EMS record, old EKG, old radiological studies, urgent care reports/EKG's, care home records)? Report findings @ -No old charts were reviewed Differential Diagnosis (chest pain, altered mental status, abdominal pain women, abdominal pain men, vaginal bleeding, weakness, fever, dyspnea, syncope, headache, dizziness, GI bleed, back pain, seizure, CVA, palpatations, mental health, musculoskeletal)? @ -Differential Abdominal Pain Women: Appendicitis, Cholecystitis, diverticulosis, ischemic bowel, pancreatitis, hepatitis, UTI, gastroenteritis, AAA, incarcerated hernia, bowel obstruction, constipation, inflammatory bowel, hepatitis, peptic ulcer disease, splenic infarction, perforated viscus, vulvitis, ovarian torsion, PID, kidney stone, placenta abruption, this is not meant to be an all-inclusive list EKG interpreted by me (3pts min.). @ -As above X-rays interpreted by me (1pt min.). @ -None done CT interpreted by me (1pt min.). @ -CT abdomen pelvis showing no acute intra-abdominal process U/S interpreted by me (1pt. min.). @ -Ultrasound gallbladder, right kidney within normal limits no acute masses or hydronephrosis What testing was considered but not performed or refused? (CT, X-rays, U/S, labs)? Why? @ -None What meds were considered but not given or refused? Why? @ -None Did you discuss the management of the patient with other professionals (professionals i.e. , PA, WOOL HAT FINISHER, lab, RT, psych nurse, social services director, record changer tester, t eacher, targeting acquisition officer, case supervisor)? Give summary @ -No Was smoking cessation discussed for >3mins.? @ -No Was critical care preformed (if so, how long)? @ -No Were there social determinants of health that impacted care today? How? (Homelessness, low income, unemployed, alcoholism, drug addiction, transportation, low edu. Level, literacy, decrease access to med. care, group home, rehab)? @ -No Was there de-escalation of care discussed even if they declined (Discuss DNR or withdrawal of care, Hospice)? DNR status @ -No What co-morbidities impacted this encounter? (DM, HTN, Smoking, COPD, CAD, Cance r, CVA, ARF, Chemo, Hep., AIDS, mental health diagnosis, sleep apnea, morbid obesity)? @ -None Was patient admitted / discharged? Hospital course, mention meds given and route, prescriptions, significant lab abnormalities, going to OR and other pertinent info. @ -Discharged patient had labs, CT, ultrasound with no acute findings. Patient may have musculoskeletal pain. Patient discharged with analgesics and close follow-up. Undiagnosed new problem with uncertain prognosis? @ -No Drug Therapy requiring intensive monitoring for toxicity (Heparin, Nitro, Insulin, Cardizem)? @ -No Were any procedures done? @ -No Diagnosis/symptom? @ -Abdominal pain Acute, or Chronic, or Acute on Chronic? @ -Acute Uncomplicated (without systemic symptoms) or Complicated (systemic symptoms)? @ -Uncomplicated Side effects of treatment? @ -No Exacerbation, Progression, or Severe Exacerbation? @ -No Poses a threat to life or bodily function? How? (Chest pain, [place], [place], pneumonia, PE, COPD, DKA, ARF, appy, cholecystitis, CVA, Diverticulitis, Homicidal, Suicidal, threat to staff... and all critical care pts) @ -No - Lab Data Result diagrams: 12/20/23 09:46 12/20/23 09:46 Lab Results 12/20/23 12/20/23 12/20/23 Range/Units 09:46 09:46 09:46 WBC 10.0 (3.8-10.6) k/uL RBC 5.15 (3.80-5.40) m/uL Hgb 15.0 (11.4-16.0) gm/dL Hct 46.1 H (34.0-46.0) % MCV 89.5 (80.0-100.0) fL MCH 29.2 (25.0-35.0) pg MCHC 32.7 (31.0-37.0) g/dL RDW 13.4 (11.5-15.5) % Plt Count 365 (150-450) k/uL MPV 7.3 Neutrophils % 65 % Lymphocytes % 23 % Monocytes % 6 % Eosinophils % 2 % Basophils % 0 % Neutrophils # 6.5 (1.3-7.7) k/uL Lymphocytes # 2.3 (1.0-4.8) k/uL Monocytes # 0.6 (0-1.0) k/uL Eosinophils # 0.2 (0-0.7) k/uL Basophils # 0.0 (0-0.2) k/uL Sodium 141 (137-145) mmol/L Potassium 4.6 (3.5-5.1) mmol/L Chloride 106 (98-107) mmol/L Carbon Dioxide 29 (22-30) mmol/L Anion Gap 6 mmol/L BUN 16 (7-17) mg/dL Creatinine 0.54 (0.52-1.04) mg/dL Est GFR (CKD-EPI)AfAm >90 (>60 ml/min/1.73 sqM) Est GFR (CKD-EPI)NonAf >90 (>60 ml/min/1.73 sqM) Glucose 92 (74-99) mg/dL Plasma Lactic Acid Jf (0.7-2.0) mmol/L Calcium 11.2 H (8.4-10.2) mg/dL Total Bilirubin 0.7 (0.2-1.3) mg/dL AST 37 H (14-36) U/L ALT 61 H (4-34) U/L Alkaline Phosphatase 95 (38-126) U/L Total Protein 7.0 (6.3-8.2) g/dL Albumin 4.2 (3.5-5.0) g/dL Lipase 89 (23-300) U/L Urine Color Colorless Urine Appearance Clear (Clear) Urine pH 6.0 (5.0-8.0) Ur Specific [place] 1.018 (1.001-1.035) Urine Protein Negative (Negative) Urine Glucose (UA) Negative (Negative) Urine Ketones Negative (Negative) Urine Blood Negative (Negative) Urine Nitrite Negative (Negative) Urine Bilirubin Negative (Negative) Urine Urobilinogen <2.0 (<2.0) mg/dL Ur Leukocyte Esterase Negative (Negative) 12/20/23 Range/Units 09:46 WBC (3.8-10.6) k/uL RBC (3.80-5.40) m/uL Hgb (11.4-16.0) gm/dL Hct (34.0-46.0) % MCV (80.0-100.0) fL MCH (25.0-35.0) pg MCHC (31.0-37.0) g/dL RDW (11.5-15.5) % Plt Count (150-450) k/uL MPV Neutrophils % % Lymphocytes % % Monocytes % % Eosinophils % % Basophils % % Neutrophils # (1.3-7.7) k/uL Lymphocytes # (1.0-4.8) k/uL Monocytes # (0-1.0) k/uL Eosinophils # (0-0.7) k/uL Basophils # (0-0.2) k/uL Sodium (137-145) mmol/L Potassium (3.5-5.1) mmol/L Chloride (98-107) mmol/L Carbon Dioxide (22-30) mmol/L Anion Gap mmol/L BUN (7-17) mg/dL Creatinine (0.52-1.04) mg/dL Est GFR (CKD-EPI)AfAm (>60 ml/min/1.73 sqM) Est GFR (CKD-EPI)NonAf (>60 ml/min/1.73 sqM) Glucose (74-99) mg/dL Plasma Lactic Acid Jf 1.4 (0.7-2.0) mmol/L Calcium (8.4-10.2) mg/dL Total Bilirubin (0.2-1.3) mg/dL AST (14-36) U/L ALT (4-34) U/L Alkaline Phosphatase (38-126) U/L Total Protein (6.3-8.2) g/dL Albumin (3.5-5.0) g/dL Lipase (23-300) U/L Urine Color Urine Appearance (Clear) Urine pH (5.0-8.0) Ur Specific [place] (1.001-1.035) Urine Protein (Negative) Urine Glucose (UA) (Negative) Urine Ketones (Negative) Urine Blood (Negative) Urine Nitrite (Negative) Urine Bilirubin (Negative) Urine Urobilinogen (<2.0) mg/dL Ur Leukocyte Esterase (Negative) - EKG Data -: EKG Interpreted by Me EKG Comments: EKG performed at 9: 32 sinus rhythm rate of 67 NV 121 QRS 84 QT/QTc 373/388 Disposition Clinical Impression: Abdominal pain Disposition: HOME SELF-CARE Condition: Stable Instructions (If sedation given, give patient instructions): Abdominal Pain (ED) Additional Instructions: Please return to the Emergency Department if symptoms worsen or any other concerns. Prescriptions: Cyclobenzaprine [Flexeril] 10 mg PO TID PRN #15 tab PRN Reason: Muscle Spasm Is patient prescribed a controlled substance at d/c from ED?: No Referrals: Yue Mejia MD [Primary Care Provider] - 1-2 days Time of Disposition: 12:46
[2023-12-20 10:19] LABS: ALT 61 U/L (4-34); AST 37 U/L (14-36); African American GFR (CKD) >90 (>60 ml/min/1.73 sqM); Albumin 4.2 g/dL (3.5-5.0); Alkaline Phosphatase 95 U/L (38-126); Anion Gap 6 mmol/L; Blood Urea Nitrogen 16 mg/dL (7-17); Calcium 11.2 mg/dL (8.4-10.2); Carbon Dioxide 29 mmol/L (22-30); Chloride 106 mmol/L (98-107); Glucose 92 mg/dL (74-99); Lipase 89 U/L (23-300); Non-African American GFR(CKD) >90 (>60 ml/min/1.73 sqM); Potassium 4.6 mmol/L (3.5-5.1); Sodium 141 mmol/L (137-145); Total Bilirubin 0.7 mg/dL (0.2-1.3)
--- NOTE | 2023-12-20 10:37 | US ---
EXAMINATION TYPE: US gallbladder DATE OF EXAM: 12/20/2023 COMPARISON: MR liver 03/22/2023, CT chest and pelvis 03/02/2023, 04/25/2022, MR abdomen 06/10/2022 CLINICAL INDICATION: Female, 48 years old with history of pain; Pt states right side ABD pain that st arted this morning TECHNIQUE: Grayscale and color Doppler imaging of the right upper quadrant was performed. FINDINGS: EXAM MEASUREMENTS: Liver Length: 15.9 cm Gallbladder Wall: 0.2 cm CBD: 0.5 cm Right Kidney: 11.9 x 4.8 x 5.6 cm [employer]IVER NOTES: Pancreas: wnl, tail obscured by overlying bowel gas Liver: Very difficult to visualize due to pt morbid obesity- pt has known liver lesions representing hemangiomas based on prior CT & MRI- ultrasound only able to visualize 2 lesions within left lobe, l argest in left lobe= 1.2 x 0.9 x 1.0 cm, and a Right lobe solid lesion= 4.8 x 6.7 x 4.2 cm Gallbladder: wnl Evidence for sonographic Madrigal's sign: No CBD: wnl Right Kidney: No evidence of hydro Gallbladder is unremarkable without evidence of wall thickening, cholelithiasis, or surrounding fluid . Negative sonographic Madrigal's sign. Common bile duct is within normal limits. Right kidney demonstr ates no hydronephrosis, nephrolithiasis, or solid mass. The visualized portions of the pancreas unrem arkable. Limited visualization of the liver due to patient's body habitus. Liver appears diffusely ec hogenic with redemonstration of known liver lesions. IMPRESSION: 1. No ultrasound evidence for acute process. 2. Hepatic steatosis with redemonstration of scattered hepatic lesions which are previously favored to represent benign hemangiomas. [facility], , 12/20/2023 10:34 AM
--- NOTE | 2023-12-20 12:02 | CT ---
EXAMINATION TYPE: CT abdomen pelvis w con CT DLP: 2351.5 mGycm, Automated exposure control for dose reduction was used. DATE OF EXAM: 12/20/2023 11:29 AM COMPARISON: CT chest abdomen pelvis 03/02/2023, gallbladder ultrasound 12/20/2023, MR liver 03/22/2023 . CLINICAL INDICATION:Female, 48 years old with history of pain right; Right side abdominal pain onset this morning 5 am. TECHNIQUE: Standard CT of the abdomen and pelvis following the administration of 100 cc of Isovue 3 00 IV contrast material. Coronal and sagittal reformats were performed. FINDINGS: LOWER CHEST: Unremarkable ABDOMEN LIVER: Borderline enlarged liver measuring 18.8 cm in CC dimension. Diffusely hypoattenuating. Scatte red homogeneous enhancing small lesions within the liver. Dominant posterior right hepatic lobe 6.5 c m peripherally enhancing lesion with peripheral hyperattenuation redemonstrated. These are stable and present since 2013 and previously favored represent hemangiomas with smaller lesions possibly repres enting flash filling hemangiomas versus vascular shunt. GALLBLADDER AND BILE DUCTS: Unremarkable. PANCREAS: Unremarkable. SPLEEN: Unremarkable. ADRENAL GLANDS: Unremarkable. KIDNEYS AND URETERS: No evidence of hydronephrosis kidneys enhance symmetrically. Nonobstructive left renal 4 mm calculus redemonstrated. Contrast is demonstrated within both collecting systems on the d elayed phase. PELVIS BLADDER: Incompletely distended but grossly unremarkable. REPRODUCTIVE: The uterus is surgically absent. ABDOMEN & PELVIS STOMACH AND BOWEL: Stomach and duodenum are unremarkable within normal limits. Moderate amount of sto ol present within the proximal right colon. No focal bowel wall thickening or surrounding inflammator y changes. No evidence of bowel obstruction. PERITONEUM: No evidence of pneumoperitoneum or free fluid. VASCULATURE: No evidence of aortic aneurysm. Pelvic phleboliths. MUSCULOSKELETAL: No acute osseous abnormalities. Mild multilevel degenerative disc disease. LYMPH NODES: No evidence for lymphadenopathy. SOFT TISSUE/ABDOMINAL WALL: Unremarkable IMPRESSION: 1. No acute abdominal/pelvic process. 2. Hepatic steatosis with stable scattered hepatic lesions which are previously favored to represent benign hemangiomas and/or vascular shunts. 3. Moderate proximal colon stool burden. 4. Stable nonobstructive left renal calculus. [facility], , 12/20/2023 12:00 PM
[2023-12-20] MEDS: ORPHENADRINE 30 MG/ML 2 ML VIAL IVP STA (13:40)
[2023-12-20] MEDS: ACET/COD 300 MG/30 MG STARTER PACK 6 TAB BTL PO STA (13:41)
[2023-12-20 14:32] VITALS: BP 136/86; PULSE 70; RESP 16; TEMP 98.9
== END 2023-12-20 14:49 | disposition home or self-care (01) ==
LOC: EC 09:09
CPT/HCPCS: 36415; 74177; 76705; 80053; 81003; 83605; 83690; 85025; 93005; 96361; 96374; 96375; 99284